=== PATIENT | female | born 1945 | race Caucasian/White ===

== ENCOUNTER 2023-01-27 11:09 | Outpatient (CLI) | payer MEDICARE, OTHER, SELFPAY ==
[2023-01-27 11:28] LABS: BUN 25 mg/dL (7-18); CO2 28.9 mmol/L (21.0-32.0); CREATININE 1.3 mg/dL (0.55-1.02); Calcium 10.1 mg/dL (8.5-10.1); Chloride 103 mmol/L (98-107); Estimated GFR 41.57 (mL/min/1.73m2); Magnesium 1.9 mg/dL (1.8-2.4); Potassium 4.4 mmol/L (3.5-5.1); Sodium 140 mmol/L (136-145)
== END 2023-01-27 11:10 | disposition home or self-care (01) ==
LOC: LBO 11:09
PROVIDERS: Visit Provider Registered Nurse
DX: R94.4 Abnormal results of kidney function studies (principal)
CPT/HCPCS: 36415; 84520; 82310; 82374; 82435; 82565; 83735; 84132; 84295